=== PATIENT | male | born 1945 | race Caucasian/White ===

== ENCOUNTER 2017-05-05 10:25 | Inpatient (IN) | payer OTHER ==
[~2017-05-05] VITALS: Ht 190.5 cm; Wt 97.4 kg
[~2017-05-05 10:25] MED LIST: AMLODIPINE BESY10 MG PO; Aspirin E.C. PO; CARVEDILOL12.5 MG PO; COREG25 M1 PO; DIPHENHIST25 M3 PO; FUROSEMIDE20 MG PO; LASIX20 MG PO; LISINOPRIL2.5 MG PO; OMEPRAZOLE40 M1 PO; PRINIVIL5 MG PO; SIMVASTATIN20 MG PO
[2017-05-05 12:15] LABS: EOSINOPHIL (%) 0.1 % (0-5); HEMATOCRIT 42.5 % (38.0-50.0); IMMATURE GRANULOCYTE (%) 0.6 % (0.0-0.7); IMMATURE GRANULOCYTE COUNT 0.1 K/uL; INSTRUMENT ABS NEUTROPHIL CT 10.4 K/uL; LYMPHOCYTE COUNT 1.2 K/uL (1.0-2.8); MCH 32.7 PG (29.0-34.0); MCHC 34.1 G/DL (30.0-36.0); MCV 95.7 FL (86-99); MEAN PLAT.VOLUME 12.9 uM^3 (9.0-12.4); MONOCYTE (%) 7.9 % (3-12); NEUTROPHIL (%) 82.1 % (45-76); NEUTROPHIL COUNT 10.4 K/uL (1.8-6.4); PLATELET COUNT 183 K/uL (156-360); RBC DIS.WIDTH-CV 14.4 % (11.8-14.6); RED BLOOD COUNT 4.44 M/uL (4.00-5.50); WHITE BLOOD COUNT 12.7 K/uL (4.1-10.2)
[2017-05-05 12:29] LABS: CHLORIDE 104 mEq/L (99-109); POTASSIUM 3.7 mEq/L (3.7-5.4); SODIUM 136 mEq/L (136-147)
[2017-05-05 12:31] LABS: GLUCOSE 118 mg/dL (70-99)
[2017-05-05 12:32] LABS: ANION GAP 8 MEQ/L (2-14)
[2017-05-05 12:33] LABS: TOTAL BILIRUBIN 2.1 mg/dL (0.0-1.0)
[2017-05-05 12:34] LABS: ALKALINE PHOSPHATASE 71 IU/L (3-129)
[2017-05-05 12:35] LABS: GFR ESTIMATE (CALCULATED) 53 mL/min/
[2017-05-05 12:36] LABS: UREA NITROGEN (BUN) 24 mg/dL (9-23)
[2017-05-05 12:38] LABS: LIPASE 469 U/L (1.0-51.0)
[2017-05-05 13:41] LABS: ADD MIUA? YES; BILIRUBIN NEGATIVE; BLOOD LARGE; COLOR YELLOW ((YELLOW)); GLUCOSE (STRIP) NEGATIVE; KETONES NEGATIVE; LEUKOCYTES NEGATIVE; NITRITE NEGATIVE; PROTEIN (STRIP) 30; SPECIFIC GRAVITY 1.021 (1.000-1.030); UROBILINOGEN 0.2 MG/DL (0.2-1.0)
[2017-05-05 13:52] LABS: BACTERIA NONE SEEN /HPF; EPITHELIAL CELLS RARE /HPF; MUCUS TRACE /LPF; RED BLOOD CELLS 0-5 /HPF (0-5); UNCLASSIFIED CASTS 0-5 /LPF; WHITE BLOOD CELLS 0-5 /HPF (0-5)
[2017-05-05] MEDS ORDERED: LISINOPRIL20 MG PO (14:56)
[2017-05-05] MEDS ORDERED: COREG25 M1 PO (14:56)
[2017-05-05] MEDS ORDERED: LOPRESSOR25 MG PO (14:57)
[2017-05-05] MEDS ORDERED: AMLODIPINE BESY10 MG PO (14:57)
[2017-05-05] MEDS ORDERED: ASPIR 8181 M1 PO (15:00)
[2017-05-05 17:20] VITALS: BP 132/92
[2017-05-05 20:00] VITALS: BP 142/87
[2017-05-05 23:52] VITALS: BP 139/77
[2017-05-06 04:00] VITALS: BP 111/69
[2017-05-06 06:58] LABS: ALKALINE PHOSPHATASE 49 IU/L (3-129); ANION GAP 6 MEQ/L (2-14); CHLORIDE 105 MEQ/L (99-109); GFR ESTIMATE (CALCULATED) > 59 mL/min/; GLUCOSE 123 mg/dL (70-99); HEMATOCRIT 37.6 % (38.0-50.0); MCH 32.2 PG (29.0-34.0); MCV 97.7 FL (86-99); PLATELET COUNT 141 K/uL (156-360); POTASSIUM 3.5 MEQ/L (3.7-5.4); RBC DIS.WIDTH-CV 14.7 % (11.8-14.6); RED BLOOD COUNT 3.85 M/uL (4.00-5.50); SAMPLE HEMOLYSIS CHECK 0; SAMPLE ICTERIC CHECK 0; SAMPLE LIPEMIA CHECK 0; SODIUM 136 MEQ/L (136-147); TOTAL BILIRUBIN 1.6 MG/DL (0.0-1.0); UREA NITROGEN (BUN) 19 mg/dL (9-23); WHITE BLOOD COUNT 12.9 K/uL (4.1-10.2)
[2017-05-06 07:47] VITALS: BP 142/80
[2017-05-06 11:20] VITALS: BP 120/62
[2017-05-06 15:03] LABS: AMYLASE 120 IU/L (1-118); LIPASE 139 U/L (1.0-51.0)
[2017-05-06 15:36] VITALS: BP 138/76
[2017-05-07] VITALS: BP 132/76
[2017-05-07 04:00] VITALS: BP 136/76
[2017-05-07 06:04] LABS: HEMATOCRIT 34.6 % (38.0-50.0); MCHC 33.5 G/DL (30.0-36.0); MCV 98.3 FL (86-99); MEAN PLAT.VOLUME 13.2 uM^3 (9.0-12.4); PLATELET COUNT 125 K/uL (156-360); RBC DIS.WIDTH-CV 14.4 % (11.8-14.6); RED BLOOD COUNT 3.52 M/uL (4.00-5.50); WHITE BLOOD COUNT 12.4 K/uL (4.1-10.2)
[2017-05-07 06:42] LABS: ALKALINE PHOSPHATASE 49 IU/L (3-129); ANION GAP 6 MEQ/L (2-14); CHLORIDE 110 MEQ/L (99-109); DIRECT BILIRUBIN 0.4 mg/dL (0.0-0.3); GFR ESTIMATE (CALCULATED) > 59 mL/min/; GLUCOSE 116 mg/dL (70-99); POTASSIUM 3.7 MEQ/L (3.7-5.4); SAMPLE HEMOLYSIS CHECK 0; SAMPLE ICTERIC CHECK 0; SAMPLE LIPEMIA CHECK 0; SODIUM 139 MEQ/L (136-147); TOTAL BILIRUBIN 1.8 MG/DL (0.0-1.0); UREA NITROGEN (BUN) 16 mg/dL (9-23)
[2017-05-07 06:45] LABS: AMYLASE 73 IU/L (1-118)
[2017-05-07 07:18] VITALS: BP 132/84
[2017-05-07 11:09] VITALS: BP 109/74
[2017-05-07 15:07] VITALS: BP 123/73
[2017-05-07 19:18] LABS: MAGNESIUM 2.1 mg/dl (1.3-2.7); POTASSIUM 3.8 MEQ/L (3.7-5.4)
[2017-05-07 20:38] VITALS: BP 140/77
[2017-05-08] VITALS (8 sets, daily range): BP systolic 102–148; BP diastolic 62–84
[2017-05-08 05:59] LABS: EOSINOPHIL (%) 3.8 % (0-5); EOSINOPHIL COUNT 0.4 K/uL (0-0.3); HEMATOCRIT 35.8 % (38.0-50.0); IMMATURE GRANULOCYTE (%) 0.4 % (0.0-0.7); INSTRUMENT ABS NEUTROPHIL CT 8.4 K/uL; LYMPHOCYTE COUNT 1.3 K/uL (1.0-2.8); MCH 31.8 PG (29.0-34.0); MCHC 32.7 G/DL (30.0-36.0); MCV 97.3 FL (86-99); MEAN PLAT.VOLUME 12.6 uM^3 (9.0-12.4); MONOCYTE (%) 3.9 % (3-12); MONOCYTE COUNT 0.4 K/uL (0-0.8); NEUTROPHIL (%) 79.8 % (45-76); NEUTROPHIL COUNT 8.4 K/uL (1.8-6.4); PLATELET COUNT 155 K/uL (156-360); RBC DIS.WIDTH-CV 13.9 % (11.8-14.6); RBC DIS.WIDTH-SD 50.4 % (39-53); RED BLOOD COUNT 3.68 M/uL (4.00-5.50); WHITE BLOOD COUNT 10.5 K/uL (4.1-10.2)
[2017-05-08 06:34] LABS: ALKALINE PHOSPHATASE 50 IU/L (3-129); ANION GAP 7 MEQ/L (2-14); CHLORIDE 110 MEQ/L (99-109); DIRECT BILIRUBIN 0.3 mg/dL (0.0-0.3); GFR ESTIMATE (CALCULATED) > 59 mL/min/; GLUCOSE 110 mg/dL (70-99); POTASSIUM 3.8 MEQ/L (3.7-5.4); SAMPLE HEMOLYSIS CHECK 0; SAMPLE ICTERIC CHECK 0; SAMPLE LIPEMIA CHECK 0; SODIUM 140 MEQ/L (136-147); UREA NITROGEN (BUN) 15 mg/dL (9-23)
[2017-05-08 06:46] LABS: AMYLASE 47 IU/L (1-118); TOTAL BILIRUBIN 1.3 MG/DL (0.0-1.0)
[2017-05-09 03:42] VITALS: BP 160/86
[2017-05-09 06:46] LABS: HEMATOCRIT 32.5 % (38.0-50.0); MCH 33.5 PG (29.0-34.0); MCHC 34.5 G/DL (30.0-36.0); MCV 97.3 FL (86-99); MEAN PLAT.VOLUME 12.7 uM^3 (9.0-12.4); PLATELET COUNT 164 K/uL (156-360); RBC DIS.WIDTH-CV 13.7 % (11.8-14.6); RBC DIS.WIDTH-SD 49.1 % (39-53); RED BLOOD COUNT 3.34 M/uL (4.00-5.50); WHITE BLOOD COUNT 6.7 K/uL (4.1-10.2)
[2017-05-09 07:12] LABS: ALKALINE PHOSPHATASE 52 IU/L (3-129); ANION GAP 8 MEQ/L (2-14); CHLORIDE 109 MEQ/L (99-109); DIRECT BILIRUBIN 0.3 mg/dL (0.0-0.3); GFR ESTIMATE (CALCULATED) > 59 mL/min/; GLUCOSE 139 mg/dL (70-99); POTASSIUM 3.7 MEQ/L (3.7-5.4); SAMPLE HEMOLYSIS CHECK 0; SAMPLE ICTERIC CHECK 0; SAMPLE LIPEMIA CHECK 0; SODIUM 139 MEQ/L (136-147); TOTAL BILIRUBIN 1.2 MG/DL (0.0-1.0); UREA NITROGEN (BUN) 17 mg/dL (9-23)
[2017-05-09 07:26] VITALS: BP 153/71
[2017-05-09 11:35] VITALS: BP 183/73
[2017-05-09] MEDS ORDERED: NORCO 5/3251 TABLET PO (12:08)
[2017-05-09 15:07] VITALS: BP 135/68
[2017-05-09 20:00] VITALS: BP 163/89
[2017-05-09 23:40] VITALS: BP 146/92
[2017-05-10 03:47] VITALS: BP 169/99
[2017-05-10 07:58] VITALS: BP 141/68
[2017-05-10] MEDS ORDERED: NORCO 5/3251 TABLET PO (09:56)
== END 2017-05-10 11:49 | disposition home or self-care (01) | DRG 418 ==
LOC: EME 10:25 → 5SOUTH 15:30 → EDOF 15:30 → ENRESERV 15:32 → 5SOUTH 17:15 → ENPENDDIS 05-10 → 5SOUTH 05-10 11:49
PROVIDERS: Hospitalist; Internal Medicine; Internal Medicine Gastroenterology; Nurse Practitioner Adult Health; Physician Assistant; Physician Assistant Medical
PROC: 0FT44ZZ Resection of Gallbladder, Percutaneous Endoscopic Approach (ICD-10-PCS; principal; 2017-05-08)
DX: K85.10 Biliary acute pancreatitis without necrosis or infection (principal); K80.10 Calculus of gallbladder with chronic cholecystitis without obstruction; J44.9 Chronic obstructive pulmonary disease, unspecified; E86.0 Dehydration; Z87.891 Personal history of nicotine dependence; I50.9 Heart failure, unspecified; Z95.3 Presence of xenogenic heart valve; E87.6 Hypokalemia; N17.9 Acute kidney failure, unspecified; E78.5 Hyperlipidemia, unspecified; K66.0 Peritoneal adhesions (postprocedural) (postinfection); I50.32 Chronic diastolic (congestive) heart failure; I34.0 Nonrheumatic mitral (valve) insufficiency
CPT/HCPCS: 74177; 74181; 76705; 80048; 80053; 80076; 81003; 82150; 83690; 83735; 84100; 84132 91; 85025; 85027; 88304; 93005; 94799; 99281; 99285; J0131; J1100; J1170; J1644; J1885; J2270; J2405; J2710; J3010; J7030; J7042; S0028